=== PATIENT | male | born 1955 | race Caucasian/White ===

== ENCOUNTER 2018-02-13 11:02 | Outpatient (CLI) | payer OTHER ==
[~2018-02-13] VITALS: Ht 185.4 cm; Wt 109.1 kg
--- NOTE | ~2018-02-13 | HEMODYNAMI ---
PATIENT:KRISTINE DEE MEDICAL RECORD: [id number] : 57 LOCATION:[facility] ADMISSION DATE: 02/13/18 Generatedon:02/13/201813:42 Patient name: KRISTINE DEE Patient #: [id number] SSN: : Date of study: 02/13/2018 Page: Of Hemodynamic Procedure Report Patient Data Patient Demographics Procedure consent was obtained First Name: KRISTINE Gender: Male Last Name: LUIZ : 1955 Patient #: [id number] Age: 62 year(s) Race: Unknown Additional ID: [id number] Contact details [address]: [address] [place] [address] State: [place] City: [place] Zip code: [address] Admission Admission Data Admission Date: 02/13/2018 Admission Time: 11:02 Weight (lbs.): 240.31 Weight (kg.): 109 Lab Results Lab Result Date: 02/13/2018 Lab Result Time: 0:00 Biochemistry Name Units Result Min Max BUN mg/dl 12 --(-*--)-- 7 18 Creatinine mg/dl 1 --(--*-)-- 0.6 1.3 CBC Name Units Result Min Max Hemoglobin g/dl 15.7 --(--*-)-- 13.5 17.5 Platelets 10^3/l 176 --(*---)-- 130 400 Procedure Procedure Types Cath Procedure Diagnostic Procedure LHC LHC w/Coronaries w/Grafts Procedure Description Procedure Date Procedure Date: 02/13/2018 Procedure Start Time: 13:20 Procedure End Time: 13:37 Procedure Staff Name Function Dewey Lugo MD Performing Physician Rex Reza RT Scrub Breana Garcia RN Nurse Ciro Gordon RT Monitor Procedure Data Cath Procedure Fluoroscopy Diagnostic fluoroscopy Total fluoroscopy Time: 6.1 time: 6.1 min min Diagnostic fluoroscopy Total fluoroscopy dose: dose: 1064 mGy 1064 mGy Contrast Material Contrast Material Type Amount (ml) Isovue 300 168 Entry Location Entry Primary Successful Side Size Upsize Upsize Entry Closure Succes sful Closure Location (Fr) 1 (Fr) 2 (Fr) Remarks Device Remarks Femoral Right 5 Fr Exoseal artery Estimated blood loss: 10 ml Diagnostic catheters Device Type Used For End Catheter Placement MULTIPACK JL 4.0 5Fr Procedure catheter MULTIPACK 3DRC 5Fr Procedure catheter DIAGNOSTIC JL 5 5Fr Procedure catheter ([id number]) DIAGNOSTIC AR2 MOD 5 Fr Procedure catheter ([id number]) MULTIPACK Pigtail 5 Fr Procedure catheter Procedure Complications No complications Procedure Medications Medication Administration Route Dosage 0.9% NaCl I.V. 100 ml/hr Oxygen etCO2 Nasal cannula 2 l/min Lidocaine 2% added to field 20 Heparin Flush Bag added to field 2 bags (1000units/500ml NS) Versed I.V. 2 mg Fentanyl I.V. 100 mcg Versed I.V. 2 mg Fentanyl I.V. 100 mcg Versed I.V. 2 mg Fentanyl I.V. 50 mcg Versed I.V. 1 mg Plavix P.O. 75 mg Hemodynamics Rest HGB: 15.7 (g/dl) Heart Rate: 70 (bpm) Pressure Samples Time Site Value (mmHg) Purpose Heart Use Rate(bpm) 13:23 AO 97/70(75) Snapshot 70 13:35 LV 124/5,11 Snapshot 111 13:35 AO 89/32(69) Pullback 93 Gradients Valve Time Site Site 2 Mean SEP/DFP Peak To Heart Use 1 (mmHg) (sec/min) Peak Rate (mmHg) (bpm) Aortic 13:35 LV AO 8 17 93 89/32(69) Calculations Valve P-P Mean Valve Index Valve Source Name Gradient Area Flow (cm2) Aortic 8 8 Snapshots Pre Cath Intra NCS Post Cath Vital Signs Time Heart Resp SPO2 etCO2 NIBP (mmHg) Rhythm Pain Sedation Rate (ipm) (%) (mmHg) Status Level (bpm) 13:03:01 63 14 98 41.6 123/96(106) NSR 0 (11) 10(A) , No pain 13:07:15 69 10 100 29.5 126/88(110) NSR 0 (11) 10(A) , No pain 13:11:29 69 10 100 40 113/77(100) NSR 0 (11) 10(A) , No pain 13:15:41 81 16 100 17.3 106/72(85) NSR 0 (11) 10(A) , No pain 13:19:50 72 17 99 18.1 110/72(92) NSR 0 (11) 10(A) , No pain 13:24:03 70 15 98 24.2 115/71(93) NSR 0 (11) 10(A) , No pain 13:28:17 75 11 98 22.2 111/68(92) NSR 0 (11) 10(A) , No pain 13:32:26 74 15 96 12.8 106/64(80) NSR 0 (11) 10(A) , No pain 13:36:32 76 15 99 21.9 102/67(82) NSR 0 (11) 10(A) , No pain Medications Time Medication Route Dose Verified Delivered Reason Notes E ffectiveness by by 12:59:25 0.9% NaCl I.V. 100 Dewey Breana used for ml/hr ParishRegis Garcia procedure MD WEEMS 12:59:33 Oxygen etCO2 2 Dewey Breana used for Nasal l/min ParishRegis Garcia procedure cannula MD WEEMS 12:59:39 Lidocaine 2% added 20ml Dewey Roblesory for local to vial [facility] anesthetic field MD MARINELLI 12:59:45 Heparin Flush added 2 Dewey Dewey used for Bag to bags [facility] procedure (1000units/500ml field MD MARINELLI NS) 13:00:22 Plavix P.O. 75 mg Dewey Breana for [facility] Garcia antiplatelet RN therapy 13:19:42 Versed I.V. 2 mg Dewey Breana for sedation [facility] MD, RN 13:19:48 Fentanyl I.V. 100 Dewey Breana for sedation mcg [facility] Reg[facility] Garcia MD, RN 13:24:03 Fentanyl I.V. 100 Dewey Breana for sedation mcg [facility] Garcia MD RN 13:24:54 Versed I.V. 2 mg Dewey Breana for sedation [facility] MD, RN 13:30:11 Versed I.V. 2 mg Dewey Breana for sedation [facility] MD, RN 13:30:19 Fentanyl I.V. 50 Dewey Breana for sedation mcg [facility] Garcia MD RN 13:33:30 Versed I.V. 1 mg Dewey Breana for sedation [facility] Garcia MD data typist Log Time Note 12:45:34 Rex Rzea RT(R) sent for patient. Start room use. 12:53:35 Time tracking: Regular hours (M-F 7:00 - 5:00) 12:53:40 Plan of Care:Hemodynamics will remain stable., Cardiac rhythm will remain stable., Comfort level will be maintained., Respiratory function will remain adequate., Patient/ family verbilizes understanding of procedure., Procedure tolerated without complication., Recovers from procedure without complications.. 12:56:29 Patient Weight : 240.31 lbs 12:57:05 Lab Result : BUN 12 mg/dl 12:57:05 Lab Result : Platelets 176 10^3/l 12:57:05 Lab Result : Hemoglobin 15.7 g/dl 12:57:05 Lab Result : Creatinine 1 mg/dl 12:57:20 Patient received from Pre/Post Procedure Room to CCL 1 Alert and oriented. Tansferred to table in Supine position. 12:57:22 Warm blankets applied, and syed hugger turned on for patient comfort. 12:57:22 Correct patient and procedure confirmed by team. 12:57:24 Signed procedure consent form obtained from patient. 12:57:27 ECG and BP/O2 sat monitors applied to patient. 12:59:25 0.9% NaCl 100 ml/hr I.V. was administered by Breana Garcia RN; used for procedure; 12:59:33 Oxygen 2 l/min etCO2 Nasal cannula was administered by Breana Garcia RN; used for procedure; 12:59:39 Lidocaine 2% 20ml vial added to field was administered by Dewey Lugo MD; for local anesthetic; 12:59:45 Heparin Flush Bag (1000units/500ml NS) 2 bags added to field was administered by Dewey Lguo MD; used for procedure; 13:00:22 Plavix 75 mg P.O. was administered by Breana Garcia RN; for antiplatelet therapy; 13:02:00 Vital chart was started 13:12:19 Baseline sample Acquired. 13:12:24 Rhythm: sinus rhythm 13:12:25 Full Disclosure recording started 13:12:36 H&P Date Dictated: 02/06/2018 Within 30 days and on chart., H&P Addendum completed by physician on day of procedure. (MUST COMPLETE FOR ALL OUTPATIENTS). 13:12:38 Pre-procedure instructions explained to patient. 13:12:38 Pre-op teaching completed and patient verbalized understanding. 13:12:40 Family in patients room. 13:12:42 Patient NPO since Midnight. 13:12:43 Is the patient allergic to Iodine/contrast media? No. 13:12:49 Is patient on blood thinner?Yes 13:12:53 ACC The patient was administered the following blood thiners within the last 24 hours: ACCPlavix 13:12:55 Patient diabetic? No. 13:12:59 Previous problem with sedation/anesthesia? No ? 13:13:00 Snore? Yes 13:13:08 Sleep apnea? Yes 13:13:09 Deviated septum? No 13:13:10 Opens mouth fully? Yes 13:13:11 Sticks out tongue? Yes 13:13:14 Airway obstruction? No ? 13:13:28 Dentures? Yes OUT 13:13:32 Pre procedure: right dorsailis pedis pulse 1+ Palpable, but thready & weak; easily obliterated 13:13:33 Patient pain scale 0/10 ?. 13:13:44 IV patent on arrival in left antecubital with 0.9% NaCl at [facility]. 13:13:46 Lab results completed and on chart. 13:13:49 Right groin area was prepped with chlora-prep and draped in sterile fashion 13:13:51 Alarms reviewed by R. N. 13:13:51 Sharps counted by scrub and verified by R.N. 13:13:54 Use device set Femoral Dx 13:13:56 Tegaderm 4 x 4 (1626W) opened to sterile field. 13:13:57 ACIST Manifold (06157) opened to sterile field. 13:13:58 ACIST Hand Control (55258) opened to sterile field. 13:14:00 ACIST Syringe (59702) opened to sterile field. 13:14:00 Bag Decanter (2002S) opened to sterile field. 13:14:00 Medline Cath Pack ([id number]) opened to sterile field. 13:14:04 DIAGNOSTIC Multipack 5Fr catheter set (NK0976) opened to sterile field. 13:14:05 DIAGNOSTIC WIRE .035 260cm J wire (984800) opened to sterile field. 13:14:06 SHEATH 5FR [place] (MGU050) opened to sterile field. 13:17: --------ALL STOP TIME OUT------ :: Final Timeout: patient, procedure, and site verified with staff and physician. All members of the team are in agreement. 13:17:16 Right groin site verified by team. 13:17:19 Physical assessment completed. ASA score P 2 - A patient with mild systemic disease as per Dewey Lugo MD. 13:17:22 Sedation plan: IV Moderate Sedation Medication:Versed, Fentanyl 13:17:45 Zero performed for pressure channel P1 13:17:48 Zero performed for pressure channel P1 13:19:42 Versed 2 mg I.V. was administered by Breana Garcia RN; for sedation; 13:19:48 Fentanyl 100 mcg I.V. was administered by Breana Garcia RN; for sedation; 13:20:13 Procedure started. 13:20:26 Local anesthetic to right femoral artery with Lidocaine 2% by Dewey Lugo MD.INITIAL ACCESS ONLY 13:23:09 A 5 Fr sheath was inserted into the Right Femoral artery 13:23:24 A MULTIPACK JL 4.0 5Fr catheter was advanced over the wire and used for Procedure. 13:24:03 Fentanyl 100 mcg I.V. was administered by rBeana Garcia RN; for sedation; 13:24:39 Catheter removed. unable to cannulate vessel. 13:24:54 Versed 2 mg I.V. was administered by Breana Garcia RN; for sedation; 13:24:59 A MULTIPACK 3DRC 5Fr catheter was advanced over the wire and used for Procedure. 13:25:49 RCA angiography performed. 13:26:12 SVG to RCA angiography performed. 13:27:58 WEAVER to LAD angiography performed. 13:28:00 Catheter removed. 13:29:02 A DIAGNOSTIC JL 5 5Fr catheter (450665V) was advanced over the wire and used for Procedure. 13:30:11 Versed 2 mg I.V. was administered by Breana Garcia RN; for sedation; 13:30:13 LCA angiography performed. 13:30:17 Catheter removed. 13:30:19 Fentanyl 50 mcg I.V. was administered by Breana Jose RN; for sedation; 13:30:39 A DIAGNOSTIC AR2 MOD 5 Fr catheter ([id number]) was advanced over the wire and used for Procedure. 13:31:37 SVG to Circ angiography performed. 13:33:30 Versed 1 mg I.V. was administered by Breana Garcia RN; for sedation; 13:34:03 Catheter removed. 13:34:29 A MULTIPACK Pigtail 5 Fr catheter was advanced over the wire and used for Procedure. 13:35:20 LV angiography performed. 13:35:21 LV gram done using FINLEY 13:35:33 EF : 55 % 13:35:35 LV hemodynamics recorded. 13:35:38 Injector settings: Ml/sec: 10, Volume: 20, 13:35:40 Catheter removed. 13:35:42 EXOSEAL 5Fr (EX500) opened to sterile field. 13:35:51 Sheath removed intact; hemostasis achieved with Exoseal to the Right Femoral artery. 13:35:53 Procedure ended.(Physican Out) 13:36:14 Fluoroscopy time 06.10 minutes. 13:36:18 Fluoroscopy dose: 1064 mGy 13:36:18 Flurop Dose total: 1064 13:36:29 Contrast amount:Isovue 300 168ml. 13:36:53 Sharps counted by scrub and verified by R.N. 13:36:55 Insertion/operative site no bleeding no hematoma. 13:36:57 Post-op/insertion site Right Femoral artery dressed using a 4 x 4 and Tegaderm. 13:36:58 Post Procedure Pulses reassessed and unchanged 13:37:01 Post-procedure physical assessment completed. ASA score P 2 - A patient with mild systemic disease as per Dewey Lugo MD. 13:37:04 Post procedure rhythm: unchanged. 13:37:06 Estimated blood loss: 10 ml 13:37:08 Post procedure instruction explained to patient.Patient verbalizes understanding. 13:37:09 Patient needs reinforcement of post procedure teaching. 13:37:23 Procedure type changed to Cath procedure, Diagnostic procedure, LHC, LHC w/Coronaries w/Grafts 13:37:24 Procedure and supply charges have been captured, reviewed, submitted and are correct. 13:37:27 Procedure Complication : No complications 13:37:31 Vital chart was stopped 13:37:31 See physician's report for complete and final results. 13:37:40 Report given to Pre/Post Procedure Room. 13:37:49 Patient transfered to Pre/Post Procedure Room with Stretcher. 13:37:52 Procedure ended. 13:37:52 Full Disclosure recording stopped 13:41:20 End room use (Document Last) Device Usage Item Name Manufacture Quantity Catalog Hospital Part Current Minimal L ot# / Number Charge Number Stock Stock Serial# Code Tegaderm 4 3M 1 1626W [id number] 5 x 4 (1626W) ACIST Acist 1 95189 392818 425763 921612 5 Manifold Medical (52209) Systems Inc ACIST Hand Acist 1 14226 893473 837821 401170 5 Control Medical (91177) Systems Inc ACIST Acist 1 23818 354386 393932 929070 20 Syringe Medical (45640) Systems Inc Bag Microtek 1 2001S 373875 84308 518255 5 Decanter Medical Inc. (2001S) Medline Medline 1 [id number] 288703 96907 852738 5 Cath Pack ([id number]) DIAGNOSTIC Cardinal 1 YE1832 119935 53700 005209 30 Multipack Health 5Fr catheter set (ZJ8047) DIAGNOSTIC St Adolfo 1 298324 381790 484456 566077 30 WIRE .035 260cm J wire (615160) SHEATH 5FR Terumo 1 FXI294 925434 387443 146567 5 [place] (DOU647) MULTIPACK Cardinal 1 033350 5 JL 4.0 5Fr Health catheter MULTIPACK Cardinal 1 833773 5 3DRC 5Fr Health catheter DIAGNOSTIC Cardinal 1 [id number] 507522 079489 132280 5 JL 5 5Fr Health catheter (502531W) DIAGNOSTIC Cardinal 1 [id number] 769121 227444 927873 20 AR2 MOD 5 Health Fr catheter (744203U) MULTIPACK Cardinal 1 644343 5 Pigtail 5 Health Fr catheter EXOSEAL 5Fr Cardinal 1 EX500 271643 657974 593913 10 (EX500) Health Signature Audit [place] Stage Time Signature Unsigned Intra-Procedure 02/13/2018 Ciro Gordon 1:42:22 PM RT(R) Signatures Monitor : Ciro Gordon RT Signature : Date : Time : [address] [place] [address]
--- NOTE | ~2018-02-13 | OP ---
PATIENT NAME: KRISTINE DEE MEDICAL RECORD: [id number] :57 LOCATION:D.CAT ADMISSION DATE: SURGEON: EPI QUINTERO MD DATE OF OPERATION: 02/13/2018 PROCEDURE: Left heart catheterization, selective coronary angiography, right femoral artery approach. CATHETERS: A 5-[place] sheath, 5/4 left and right Vern, 5/4 pig. The procedure was well tolerated. The patient returned to the edwards, sheath removed. ExoSeal device placed. FINDINGS: Left ventriculography in 30-degree FINLEY view: Normal wall motion and normal systolic function. CORONARY ANATOMY: LEFT MAIN: Left main is free of disease. LAD: Fills for a short period of time is seen filling via competitive flow via the WEAVER. CIRCUMFLEX: Short period of time, totally occluded. RIGHT CORONARY ARTERY: Fills to about its proximal third and is totally occluded. BYPASS GRAFTS: 1. WEAVER to LAD widely patent throughout its course with good post-anastomotic stenosis. 2. Circumflex: Saphenous vein graft is widely patent with good distal runoff. No evidence of post-anastomotic stenosis. 3. Right coronary widely patent: Filling the PDA and is free of disease. IMPRESSION: A widely patent bypass grafts, severe [place] disease, good LV function. TRANSINT:[id number] Voice Confirmation ID: [id number] DOCUMENT ID: [id number] EPI QUINTERO MD CC: [id number] DICTATION DATE: 02/13/18 1344 INSTRUCTOR TAP DANCING: 02/13/18 1417 [facility] [address] [place] [address]
[2018-02-13] MEDS ORDERED: KLONOPIN0.5 MG PO (11:20)
[2018-02-13] MEDS ORDERED: FLOMAX0.4 MG PO (11:22)
[2018-02-13] MEDS ORDERED: PLAVIX75 MG PO (11:22)
[2018-02-13] MEDS ORDERED: LIPITOR20 MG PO (11:23)
[2018-02-13] MEDS ORDERED: BUPRENORPHIN-N1 EACH SL (11:25)
[2018-02-13 11:31] VITALS: BP 114/73; Ht 185.4 cm; Wt 109.1 kg
[2018-02-13 11:49] LABS: BASOPHILS 0.1 % (0-2); EOSINOPHILS 2.5 % (0-7); HEMATOCRIT 43.9 % (42.0-54.0); HEMOGLOBIN 15.7 g/dL (13.5-17.5); IMMATURE GRANULOCYTES 0.4 % (0-5); LYMPHOCYTES 22.5 % (15-50); MCH 32.9 pg (26.0-34.0); MCHC 35.8 g/dL (31.0-37.0); MEAN PLATELET VOLUME 11.6 fL (7.4-10.4); MONOCYTES 7.3 % (2-11); NEUTROPHILS 67.2 % (40-80); PLATELET COUNT 176 10x3/uL (130-400); RBC 4.77 10x6/uL (4.20-6.10); RDW 12.5 % (11.5-14.5)
[2018-02-13 11:57] LABS: CALC OSMOLALITY 276 mosm/kg (275-300); CALCIUM 8.7 mg/dL (8.5-10.1); CARBON DIOXIDE 31.3 mmol/L (21.0-32.0); CHLORIDE - SERUM 99 mmol/L (98-107); GLUCOSE 112 mg/dL (74-106); POTASSIUM - SERUM 3.9 mmol/L (3.5-5.1); SODIUM 138 mmol/L (136-145); UREA NITROGEN 12 mg/dL (7-18); eGFR NON AFRICAN AMERICAN 81 mL/min (90-120)
== END 2018-02-13 16:00 | disposition home or self-care (01) ==
LOC: D.CATH 11:02
PROVIDERS: Internal Medicine Interventional Cardiology
DX: I25.119 Atherosclerotic heart disease of native coronary artery with unspecified angina pectoris (principal); Z95.1 Presence of aortocoronary bypass graft; Z01.812 Encounter for preprocedural laboratory examination